=== PATIENT | female | born 1975 | race Caucasian/White ===

== ENCOUNTER 2021-12-13 00:26 | Emergency (ER) | payer MEDICAID ==
[~2021-12-13] VITALS: Ht 160 cm; Wt 93.4 kg
[2021-12-13 00:41] VITALS: BP 148/95
--- NOTE | 2021-12-13 00:45 | NUR ---
PT TAKEN TO BED 9
--- NOTE | 2021-12-13 01:15 | NUR ---
Patient resting in bed, chest rise and fall symmetrical, no c/o pain or s/s of discomfort.
[2021-12-13] MEDS ORDERED: diphenhydrAMINE 50 MG/ML VIAL IVP ONE (01:50)
[2021-12-13] MEDS ORDERED: methylPREDNISolone SS 125 MG in WATER STERILE 2 ML IV ONE (01:50)
--- NOTE | 2021-12-13 02:00 | NUR ---
Patient resting in bed, chest rise and fall symmetrical, no c/o pain or s/s of discomfort.
--- NOTE | 2021-12-13 03:10 | NUR ---
Patient resting in bed, chest rise and fall symmetrical, no c/o pain or s/s of discomfort.
[2021-12-13] MEDS ORDERED: PRED20TA5 PO (04:11)
[2021-12-13] MEDS ORDERED: BEN50 PO (04:11)
[2021-12-13 04:18] VITALS: BP 115/99
--- NOTE | 2021-12-13 04:18 | NUR ---
Patient discharged with v/s stable. Written and verbal after care instructions given and explained. Patient alert, oriented and verbalized understanding of instructions. Ambulatory with steady gait. All questions addressed prior to discharge. ID band removed. Patient advised to follow up with PMD. Rx of benadryl and deltasone given. Patient educated on indication of medication including possible reaction and side effects. Opportunity to ask questions provided and answered.
== END 2021-12-13 04:18 | disposition home or self-care (01) ==
LOC: MED 00:26
DX: T39.315A Adverse effect of propionic acid derivatives, initial encounter (principal); Z79.1 Long term (current) use of non-steroidal anti-inflammatories (NSAID); Y92.89 Other specified places as the place of occurrence of the external cause
CPT/HCPCS: 96374; 99283; J1200